=== PATIENT | male | born 1960 | race Caucasian/White ===

== ENCOUNTER 2018-01-14 05:34 | Outpatient (CLI) | payer BC ==
[~2018-01-14] VITALS: Ht 188 cm; Wt 113.4 kg
[2018-01-14] MEDS ORDERED: MULT-517 PO (14:06)
[2018-01-14] MEDS ORDERED: CELE200C PO (14:06)
[2018-01-14] MEDS ORDERED: FENO135C PO (14:06)
[2018-01-14] MEDS ORDERED: ALPR0.254 PO (14:06)
[2018-01-14] MEDS ORDERED: LISI1TAB8 PO (14:06)
[2018-01-19] MEDS ORDERED: PANT40TA2 PO (09:28)
== END 2018-01-14 14:08 ==
LOC: PREOP 05:34
PROVIDERS: ATTEND Surgery
DX: Z01.818 Encounter for other preprocedural examination (principal)

== ENCOUNTER 2018-01-19 08:02 | Day surgery (SDC) | payer BC ==
[~2018-01-19] VITALS: Ht 188 cm; Wt 113.4 kg
[~2018-01-19 08:02] MED LIST: ALPR0.254 PO; CELE200C PO; FENO135C PO; LISI1TAB8 PO; MULT-517 PO
[2018-01-19] MEDS ORDERED: LACTATED RINGERS 1,000 ML IV ONE (08:15)
[2018-01-19 08:20] VITALS: BP 138/96
[2018-01-19] MEDS ORDERED: PROPOFOL INJECTION 50 ML IV ONE (08:24)
--- NOTE | 2018-01-19 08:24 | Progress Note-Pre Operative ---
Pre-Operative Progress Note H&P Reviewed The H&P was reviewed, patient examined and no changes noted. Date Seen by Provider: Jan 19, 2018 Time Seen by Provider: 08:23 Date H&P Reviewed: Jan 19, 2018 Time H&P Reviewed: 08:23 Pre-Operative Diagnosis: GERD Screening colonoscopy NUVIA COON DO Jan 19, 2018 08:23
[2018-01-19] MEDS ORDERED: MIDAZOLAM 5 MG/5 ML (VERSED) VIAL ONE (08:25)
[2018-01-19] MEDS ORDERED: LACTATED RINGERS 1,000 ML IV PRN (08:30)
[2018-01-19] MEDS ORDERED: GLYCOPYRROLATE 0.2 MG/ML (ROBINUL) 2 ML VIAL IV ONE (08:30)
[2018-01-19] MEDS ORDERED: LIDOCAINE TOPICAL 4% 50 ML BTL TP ONE (08:30)
[2018-01-19] MEDS ORDERED: GLYCOPYRROLATE 0.2 MG/ML (ROBINUL) 2 ML VIAL ONE (08:33)
[2018-01-19] MEDS ORDERED: LIDOCAINE TOPICAL 4% 50 ML BTL ONE (08:33)
[2018-01-19] MEDS ORDERED: ZOLP5TAB PO (08:56)
--- NOTE | 2018-01-19 09:27 | Progress Note-Post Operative ---
Post-Operative Progess Note Surgeon (s)/Global Expansion Sales Director (s) Surgeon NUVAI COON DO Global Expansion Sales Director: na Pre-Operative Diagnosis GERD Screening colonoscopy Post-Operative Diagnosis duodenitis, small hiatal hernia minimal diverticulosis Procedure & Operative Findings Date of Procedure 01/19/18 Procedure Performed/Findings egd c biopsy, colonoscopy Anesthesia Type per mda Estimated Blood Loss Estimated blood loss (mL): none Specimens/Packing Specimens Removed antrum NUVIA COON DO Jan 19, 2018 09:27
[2018-01-19] MEDS ORDERED: PANT40TA2 PO (09:28)
--- NOTE | 2018-01-19 09:28 | Discharge Inst-Simple/Standard ---
Discharge Inst-Standard Discharge Medications New, Converted or Re-Newed RX: Transmitted to Pharmacy Patient Instructions/Follow Up Plan of Care/Instructions/FU: 2 weeks Real Activity as Tolerated: Yes Discharge Diet: Regular Diet (high fiber) NUVIA COON DO Jan 19, 2018 09:28
--- NOTE | 2018-01-19 10:57 | Anesthesia-General Post-Op ---
MAC Patient Condition Mental Status/LOC: Same as Preop Cardiovascular: Satisfactory Nausea/Vomiting: Absent Respiratory: Satisfactory Pain: Controlled Complications: Absent Post Op Complications Complications None Follow Up Care/Instructions Patient Instructions None needed. Anesthesiology Discharge Order Discharge Order Patient is doing well, no complaints, stable vital signs, no apparent adverse anesthesia problems. No complications reported per nursing. BARBARA IQBAL CRNA Jan 19, 2018 10:57
--- NOTE | 2018-01-19 13:42 | OPERATIVE REPORT ---
DATE OF SERVICE: 01/19/2018 PREOPERATIVE DIAGNOSES: Gastroesophageal esophageal reflux disease and screening colonoscopy. POSTOPERATIVE DIAGNOSES: Duodenitis, small hiatal hernia, minimal diverticulosis. PROCEDURE: EGD with biopsy of the antrum and colonoscopy. SURGEON: Nuvia Noble DO ANESTHESIA: Per MDA. ESTIMATED BLOOD LOSS: None. COMPLICATIONS: None. INDICATIONS: The patient is a 57-year-old male with reflux and then the need for screening colonoscopy. He understands the risks and benefits of procedure and wished to proceed with procedure. Consent was signed on the chart. DESCRIPTION OF PROCEDURE: The patient was taken to the endoscopy suite, placed in left lateral recumbent position. Timeout was performed. Scope was inserted in the mouth, down the esophagus, stomach and into the duodenum without difficulty. There were no polyps, masses or ulcerations. Within the duodenum, the first portion had some slight erythematous changes consistent with duodenitis. Scope was slowly retracted back to the stomach where it was further insufflated. No polyps, masses or ulcerations or erythematous changes. Scope was retroflexed noting a small hiatal hernia. No other pathology was noted. Biopsy of the antrum was obtained. Scope was then slowly retracted back into the distal esophagus, which had normal appearance. No polyps, masses or ulcerations or erythematous changes. Scope was then slowly retracted back until completely removed, noting no other pathology. Digital rectal exam was performed. There were no palpable polyps, masses or ulcerations. Scope was inserted in the rectum and advanced all way to the cecum without difficulty. Prep was adequate. There were no polyps, masses or ulcerations in the cecum, ascending, transverse, descending and sigmoid colon. Within the sigmoid colon, minimal amount of diverticulosis was present. Once in the rectum, scope was also retroflexed noting no other pathology. Scope was returned to its normal position, slowly withdrawn until completely removed. The patient tolerated the procedure well without complications. He was taken to recovery room in stable condition. RECOMMENDATIONS: The patient was started on Protonix 40 mg daily. He is recommend high fiber diet due to diverticulosis. The patient will need repeat colonoscopy in 10 years unless family history of colon cancer or personal history of polyps, which would then be 5 years. If he has any problems prior to that, he should be reevaluated at that time. Job ID: [id number] DocumentID: [id number] Dictated Date: 01/19/2018 09:31:35 [place] Date: 01/19/2018 13:41:22 Dictated By: NUVIA NOBLE DO
== END 2018-01-19 10:17 | disposition home or self-care (01) ==
LOC: ENDO 08:02
PROVIDERS: ATTEND Surgery
DX: Z12.11 Encounter for screening for malignant neoplasm of colon (principal); K57.30 Diverticulosis of large intestine without perforation or abscess without bleeding; K29.80 Duodenitis without bleeding; K21.9 Gastro-esophageal reflux disease without esophagitis; K44.9 Diaphragmatic hernia without obstruction or gangrene; I10 Essential (primary) hypertension; Z79.899 Other long term (current) drug therapy

== ENCOUNTER → 2022-01-20 | Outpatient (CLI) | payer BC ==
[~2022-01-20] MED LIST changes: +ALPR.25T PO; -ALPR0.254 PO; +LISI1TAB46 PO; -LISI1TAB8 PO; +PANT40TA2 PO; +ZOLP5TAB PO
--- NOTE | 2022-01-20 11:44 | Diagnostic Imaging Report ---
Indication: Severe right elbow pain. Time of Exam: 11:31 AM 3 views of the right elbow were obtained. There are some chronic degenerative changes to the elbow. Benign-appearing calcifications in the soft tissues posterior to elbow are noted. No fracture, dislocation or effusion is seen. IMPRESSION: Chronic changes. No acute abnormality is detected. Dictated by: Dictated on workstation # [id number]
== END ==
LOC: RAD 10:53
PROVIDERS: ATTEND Family Medicine
DX: M19.021 Primary osteoarthritis, right elbow (principal)
CPT/HCPCS: 73080

== ENCOUNTER 2022-02-26 05:41 | Outpatient (CLI) | payer BC ==
[~2022-02-26] VITALS: Ht 188 cm; Wt 105.7 kg
[2022-02-27] MEDS ORDERED: FENO134C21 PO (09:10)
[2022-02-27] MEDS ORDERED: NAPR-915 PO (09:10)
[2022-02-27] MEDS ORDERED: TRAM50TA3 PO (09:10)
[2022-02-27] MEDS ORDERED: SILD20TA14 PO (09:10)
[2022-02-27] MEDS ORDERED: ACHD5005 PO (09:10)
[2022-02-27] MEDS ORDERED: CELE100C84 PO (09:10)
== END 2022-02-27 09:18 | disposition home or self-care (01) ==
LOC: PREOP 05:41
PROVIDERS: ATTEND Surgery
DX: Z01.818 Encounter for other preprocedural examination (principal); K21.9 Gastro-esophageal reflux disease without esophagitis

== ENCOUNTER 2022-03-11 10:10 | Day surgery (SDC) | payer BC ==
[~2022-03-11] VITALS: Ht 188 cm; Wt 105.7 kg
[~2022-03-11 10:10] MED LIST changes: +ACHD5005 PO; +CELE100C84 PO; +FENO134C21 PO; +NAPR-915 PO; +SILD20TA14 PO; +TRAM50TA3 PO
[2022-03-11] MEDS ORDERED: LACTATED RINGERS 1,000 ML IV STA (10:16)
[2022-03-11 10:30] VITALS: BP 124/84
[2022-03-11] MEDS ORDERED: HURRICAINE EXT TUBE (BENZOCAINE) XX PRN (10:30)
--- NOTE | 2022-03-11 11:21 | Progress Note-Pre Operative ---
Pre-Operative Progress Note Date of Available H&P: Feb 12, 2022 Date H&P Reviewed: Mar 11, 2022 Time H&P Reviewed: 11:21 History & Physical: H&P Reviewed, Patient Examed, No changes noted Pre-Operative Diagnosis: gerd NUVIA COON DO Mar 11, 2022 11:21
[2022-03-11] MEDS ORDERED: PROPOFOL INJECTION 50 ML IV ONE (11:22)
[2022-03-11] MEDS ORDERED: MIDAZOLAM 2 MG/2 ML (VERSED) VIAL ONE (11:22)
--- NOTE | 2022-03-11 11:34 | Progress Note-Post Operative ---
Post-Operative Progess Note Surgeon (s)/Critical Systems Technician (s) Surgeon NUVIA COON DO Critical Systems Technician: na Pre-Operative Diagnosis gerd Post-Operative Diagnosis reactive gastropathy Procedure & Operative Findings Date of Procedure 03/11/22 Procedure Performed/Findings egd c biopsies Anesthesia Type per spinneret cleaner Estimated Blood Loss Estimated blood loss (mL): na Specimens/Packing Specimens Removed antrum, ge NUVIA COON DO Mar 11, 2022 11:34
--- NOTE | 2022-03-11 11:35 | Discharge Inst-Simple/Standard ---
Discharge Inst-Standard Patient Instructions/Follow Up Plan of Care/Instructions/FU: 2 weeks Real Activity as Tolerated: Yes Discharge Diet: Regular Diet NUVIA COON DO Mar 11, 2022 11:35
[2022-03-11 11:38] VITALS: BP 92/55
[2022-03-11 11:43] VITALS: BP 108/64
[2022-03-11 11:45] VITALS: BP 108/64
[2022-03-11 12:00] VITALS: BP 108/79
[2022-03-11 12:10] VITALS: BP 108/79
--- NOTE | 2022-03-11 14:38 | Anesthesia-General Post-Op ---
MAC Patient Condition Mental Status/LOC: Same as Preop Cardiovascular: Satisfactory Nausea/Vomiting: Absent Respiratory: Satisfactory Pain: Controlled Complications: Absent Post Op Complications Complications None Follow Up Care/Instructions Patient Instructions None needed. Anesthesiology Discharge Order Discharge Order Patient is doing well, no complaints, stable vital signs, no apparent adverse anesthesia problems. No complications reported per nursing. JADEN MARLOW CRNA Mar 11, 2022 14:38
--- NOTE | 2022-03-11 19:10 | OPERATIVE REPORT ---
DATE OF SERVICE: 03/11/2022 PREOPERATIVE DIAGNOSES: Gastroesophageal reflux disease. POSTOPERATIVE DIAGNOSIS: Reactive gastropathy. PROCEDURE: EGD with biopsies. SURGEON: Nuvia Noble DO ANESTHESIA: Per TELEPHONER. ESTIMATED BLOOD LOSS: None. COMPLICATIONS: None. INDICATIONS: The patient is a 61-year-old male with GERD symptoms. He understands risks and benefits of procedure and wishes to proceed. Consent was signed in the chart. DESCRIPTION OF PROCEDURE: The patient was taken to the endoscopy suite, placed in left lateral recumbent position. Timeout was performed. Scope was inserted in mouth, down the esophagus, stomach and into the duodenum without difficulty. There were no polyps, masses or ulcerations within the duodenum. Scope was slowly retracted back to stomach where it was further insufflated. Changes of reactive gastropathy present. Biopsy of the antrum was obtained. Scope was retroflexed noting no other pathology. Scope was returned to its normal position, slowly withdrawn to distal esophagus, which had normal appearance. GE junction biopsy was obtained. Scope was slowly retracted back to completely remove noting no other pathology. The patient tolerated the procedure well without any complications, taken to recovery room in stable condition. RECOMMENDATIONS: The patient will continue on current medications. We will await biopsy results and depending upon results, further workup and recommendations. Job ID: [id number] DocumentID: [id number] Dictated Date: 03/11/2022 11:37:35 System Safety Engineer Date: 03/11/2022 19:09:37 Dictated By: NUVIA NOBLE DO
== END 2022-03-11 12:15 | disposition home or self-care (01) ==
LOC: ENDO 10:10
PROVIDERS: ATTEND Surgery
DX: K21.00 Gastro-esophageal reflux disease with esophagitis, without bleeding (principal); K31.89 Other diseases of stomach and duodenum; Z79.899 Other long term (current) drug therapy; E66.9 Obesity, unspecified; Z68.29 Body mass index [BMI] 29.0-29.9, adult

== ENCOUNTER → 2022-04-04 | Outpatient (CLI) | payer BC ==
--- NOTE | 2022-04-04 13:51 | Diagnostic Imaging Report ---
PROCEDURE: US Gallbladder. TECHNIQUE: Multiple real-time grayscale images were obtained over the right upper quadrant in various projections. INDICATION: Epigastric pain COMPARISON: None FINDINGS: The liver is enlarged. It measures 21 cm in length. There are no focal lesions. Portal vein shows normal hepatopetal flow. There is no sonographic evidence of intrahepatic biliary ductal dilatation. Common bile duct is obscured. There is no evidence of cholelithiasis, gallbladder wall thickening, or pericholecystic fluid. The pancreas and aorta are not well visualized due to overlying bowel gas. Visualized portions of the IVC are unremarkable. There is no ascites. The right kidney measures approximately 14.6 cm in length. There is prominent column of Puma versus duplication of the right kidney. There is no evidence of hydronephrosis, calculus, nor mass. IMPRESSION: 1. Hepatomegaly. 2. Prominent column of Puma versus duplication of the right kidney. 3. Otherwise, unremarkable right upper quadrant abdominal sonogram Dictated by: Dictated on workstation # [id number]
== END ==
LOC: RAD 08:30
PROVIDERS: ATTEND Surgery
DX: R16.0 Hepatomegaly, not elsewhere classified (principal); R10.13 Epigastric pain
CPT/HCPCS: 76705

== ENCOUNTER → 2022-04-04 | Outpatient (CLI) | payer BC ==
[~2022-04-04] MED LIST changes: +CATHETER FLUSH 10 ML SYR IVP PRN
--- NOTE | 2022-04-04 11:44 | Diagnostic Imaging Report ---
INDICATION: Epigastric pain. Patient was administered 5.2 mCi technetium 99m Choletec intravenously and imaging over the abdomen was performed. At 60 minutes patient ingested Ensure and the gallbladder ejection fraction was calculated. There is homogeneous uptake of activity throughout the liver. There is prompt excretion of activity into the common duct and gallbladder. There is normal passage of activity into the small bowel. Gallbladder ejection fraction is calculated to be 4%. Normal values are 35% or greater. IMPRESSION: 1. Patent cystic duct and common bile duct. 2. Abnormally low gallbladder ejection fraction of 4%. This could be owing to chronic cholecystitis or gallbladder dyskinesia. Dictated by: Dictated on workstation # [id number]
== END ==
LOC: CARD 08:22
PROVIDERS: ATTEND Surgery
DX: R10.13 Epigastric pain (principal)
CPT/HCPCS: 78227; A9537

== ENCOUNTER 2022-04-17 14:37 | Outpatient (CLI) | payer BC ==
[~2022-04-17] VITALS: Ht 187.9 cm; Wt 101.4 kg
[~2022-04-17 14:37] MED LIST changes: -CATHETER FLUSH 10 ML SYR IVP PRN
== END 2022-04-17 16:59 | disposition home or self-care (01) ==
LOC: PREOP 14:37
PROVIDERS: ATTEND Surgery
DX: Z01.818 Encounter for other preprocedural examination (principal)

== ENCOUNTER 2022-04-24 08:07 | Day surgery (SDC) | payer BC ==
[2022-04-24] VITALS (12 sets, daily range): BP systolic 133–172; BP diastolic 72–118
[~2022-04-24] VITALS: Ht 187.9 cm; Wt 101.4 kg
[2022-04-24] MEDS ORDERED: BUP/EPI 0.5% 1:200,000 (MARCAINE) 10ML VIAL IJ ONE (08:22)
--- NOTE | 2022-04-24 08:25 | Progress Note-Pre Operative ---
Pre-Operative Progress Note Date of Available H&P: Apr 09, 2022 Date H&P Reviewed: Apr 24, 2022 Time H&P Reviewed: 08:24 History & Physical: H&P Reviewed, Patient Examed, No changes noted Pre-Operative Diagnosis: biliary dyskinesia NUVIA COON DO Apr 24, 2022 08:25
[2022-04-24] MEDS ORDERED: ONDANSETRON 4 MG/2 ML (SDV) Z0FRAN ONE ×2 (08:27→11:57)
[2022-04-24] MEDS ORDERED: fentaNYL INJ 100 MCG/2 ML AMP ONE (08:27)
[2022-04-24] MEDS ORDERED: ROCURONIUM 10 MG/ML 5 ML SYRINGE IV ONE (08:27)
[2022-04-24] MEDS ORDERED: proPOfol 200 MG/20 ML (DIPRIVAN) VIAL IV ONE (08:27)
[2022-04-24] MEDS ORDERED: SEVOFLURANE (ULTANE) 15 ML INHAL SOLN ONE ×2 (08:27→10:06)
[2022-04-24] MEDS ORDERED: LIDOCAINE PF 2% 5 ML (XYLOCAINE) VIAL ONE (08:27)
[2022-04-24] MEDS ORDERED: MIDAZOLAM 2 MG/2 ML (VERSED) VIAL ONE (08:27)
[2022-04-24] MEDS ORDERED: ceFAZolin INJECTION 2,000 MG in NS (IVPB) 50 ML IV ONE (08:45)
[2022-04-24] MEDS: LACTATED RINGERS 1,000 ML IV PRN ×3 (08:52→12:21)
[2022-04-24] MEDS ORDERED: HYDROmorphone 2 MG/ML VIAL (DILAUDID) ONE ×2 (09:50→10:27)
[2022-04-24] MEDS ORDERED: ESMOLOL 100 MG/10 ML (BREVIBLOC) VIAL ONE (09:54)
[2022-04-24] MEDS ORDERED: NEOSTIGMINE 3 MG/3 ML VIAL ONE (10:06)
[2022-04-24] MEDS ORDERED: GLYCOPYRROLATE 0.2 MG/ML (ROBINUL) 2 ML VIAL ONE (10:06)
--- NOTE | 2022-04-24 10:11 | Progress Note-Post Operative ---
Post-Operative Progess Note Surgeon (s)/Substation Supervisor (s) Surgeon NUVIA COON DO Substation Supervisor: Dr. Molina to assist in retraction dissection and closure. Pre-Operative Diagnosis biliary dyskinesia Post-Operative Diagnosis same Procedure & Operative Findings Date of Procedure 04/24/22 Procedure Performed/Findings PROCEDURE: Laparoscopic cholecystectomy with intraoperative cholangiogram. COMPLICATIONS: None. PROCEDURE: The patient was taken to the operating suite and was prepped and draped in sterile fashion. A surgical pause was performed. Just superior to the umbilicus, a 12 mm incision was made. Dissection was taken down to the fascia, which was then scored and grasped with a Ifeoma and the abdomen was then entered. A 0 Vicryl suture was placed in a syiisn-ff-nluty fashion and a Velasquez trocar was placed and secured. Pneumoperitoneum was achieved. A 5mm trochar place in the subxyphoid and 2 in the right upper quadrant. The gallbladder was then grasped and elevated. The cystic duct, and cystic artery were then dissected out. Clip was placed on the distal portion of the cystic duct which was then partially transected. An arrow catheter was inserted into the duct. The cholangiogram was then performed. No filing defects and contrast made its way into the duodenum. Catheter removed. Clips were placed on proximal portion of the cystic duct and then the duct was then transected. Clips were placed along the proximal and distal portion of the cystic artery which was then transected. Hook cautery was used to dissect the gallbladder from the gallbladder fossa achieving hemostasis. The gallbladder was placed in an Endobag and removed through the 12 mm trocar site. The abdomen was then reinspected. Copious amounts of irrigation were used to irrigate the abdomen and there were no signs of active bleeding. Hemostasis had been achieved. The 12 mm fascial defect was then closed with 0 Vicryl suture that had been placed in a qjxmts-po-ffbjo fashion. The abdomen was then desufflated, the trocars were removed. The abdomen was then washed and dried. The skin was then closed using 4-0 Monocryl in a subcuticular fashion. The abdomen was washed and dried and Skin Affix was place over incisions. Patient tolerated the procedure well without any complications and was taken to the recovery room in stable condition. Anesthesia Type general Estimated Blood Loss Estimated blood loss (mL): minimal Specimens/Packing Specimens Removed gallbladder NUVIA COON DO Apr 24, 2022 10:11
[2022-04-24] MEDS ORDERED: KETOROLAC 30 MG/ML VIAL ONE (10:12)
[2022-04-24] MEDS ORDERED: DOCU-143 PO (10:12)
[2022-04-24] MEDS ORDERED: ACHD5005 PO (10:12)
--- NOTE | 2022-04-24 10:14 | Discharge Inst-Simple/Standard ---
Discharge Inst-Standard Discharge Medications New, Converted or Re-Newed RX: Transmitted to Pharmacy Patient Instructions/Follow Up Plan of Care/Instructions/FU: 2 weeks Real Activity as Tolerated: No Discharge Diet: Regular Diet Other Inst to Patient Follow up Appt: Make appointment for 2 weeks. Instructions: No lifting greater than 10 pounds. No strenuous activity. May shower in 24 hours, no tub bath or soaking. Use incentive spirometer at home as directed. No Smoking Skin/Wound Care: You have special glue over incision, it will fall off on it's own. Symptoms to Report: Appetite Changes, Extremity Discoloration, Numbness/Tingling, Swelling Increased, Bleeding Excessive, Eyesight Changes, Pain Increased, Urine Color Change, Constipation(Persistent), Fever over 101 degree F, Pain/Pressure in chest, Urinating Difficulty, Cough Up/Vomit Blood, Heart Beat Irreg/Pounding, Pain/Pressure in jaw, Vaginal Bleeding Increase, Cramps in feet or legs, Lightheadedness, Pain/Pressure in shoulder, Diarrhea(Persistent), Memory Changes Suddenly, Questions/Concerns, Weight gain consecutive days, Dizziness/Fainting, Nausea/Vomiting, Shortness of Breath, Weight gain over 2 pounds. If eyes or skin turn yellow notify physician. If questions or concerns contact your physician Or seek help at emergency department. NUVIA COON DO Apr 24, 2022 10:14
[2022-04-24] MEDS ORDERED: LABETALOL HCL 20 MG/4 ML VIAL ONE (10:21)
[2022-04-24] MEDS ORDERED: ONDANSETRON 4 MG/2 ML (SDV) Z0FRAN IVP PRN (10:30)
[2022-04-24] MEDS ORDERED: HYDROmorphone 2 MG/ML VIAL (DILAUDID) IV ONE (10:30)
--- NOTE | 2022-04-24 11:11 | Anesthesia-General Post-Op ---
General Patient Condition Mental Status/LOC: Same as Preop Cardiovascular: Satisfactory Nausea/Vomiting: Absent Respiratory: Satisfactory Pain: Controlled Complications: Absent Post Op Complications Complications None Follow Up Care/Instructions Patient Instructions None needed. Anesthesia/Patient Condition Patient Condition Patient is doing well, no complaints, stable vital signs, no apparent adverse anesthesia problems. No complications reported per nursing. D/C home per [facility] Criteria: Yes RUBI WEATHERS CRNA Apr 24, 2022 11:11
[2022-04-24] MEDS ORDERED: HYDROcodone/APAP 5 MG/325 MG (LORTAB) TAB ONE (11:56)
[2022-04-24] MEDS ORDERED: ONDANSETRON 4 MG/2 ML (SDV) Z0FRAN IVP ONE (12:00)
[2022-04-24] MEDS ORDERED: HYDROcodone/APAP 5 MG/325 MG (LORTAB) TAB PO ONE (12:00)
--- NOTE | 2022-04-24 16:46 | Diagnostic Imaging Report ---
INDICATION: Abdominal pain. IMPRESSION: 2.5 seconds of fluoroscopy and 44 digital images were acquired in surgery during a surgical cholangiogram by Dr. Noble. Images show contrast injected through the cystic duct. The intra and extra hepatic bile ducts are widely patent and normal in caliber. Contrast appears to be passing into the duodenum. Dictated by: Dictated on workstation # [id number]
== END 2022-04-24 13:19 | disposition home or self-care (01) ==
LOC: SDC 08:07
PROVIDERS: ATTEND Surgery
DX: K82.8 Other specified diseases of gallbladder (principal); K81.1 Chronic cholecystitis; E66.9 Obesity, unspecified; Z68.28 Body mass index [BMI] 28.0-28.9, adult; K31.9 Disease of stomach and duodenum, unspecified; K20.90 Esophagitis, unspecified without bleeding; Z79.899 Other long term (current) drug therapy
CPT/HCPCS: 76000; 87081; 94664